=== PATIENT | male | born 1950 | race Native Hawaiian/Other Pacific Islander ===

== ENCOUNTER 2018-01-02 06:04 | Outpatient (CLI) | payer OTHER ==
[~2018-01-02 06:04] MED LIST: CLON0.5T36 PO; COZAAR100 MG PO; LEVEMIR SC; NOVOLOG SC
[2018-01-02 07:07] LABS: PLATELET COUNT 229 K/uL (142-355)
[2018-01-02 07:35] LABS: POTASSIUM 4.7 mmol/L (3.6-5.2)
== END 2018-01-02 21:31 | disposition home or self-care (01) ==
LOC: LABW 06:04
PROVIDERS: Internal Medicine
DX: Z00.00 Encounter for general adult medical examination without abnormal findings (principal); Z12.5 Encounter for screening for malignant neoplasm of prostate; R73.9 Hyperglycemia, unspecified; E78.00 Pure hypercholesterolemia, unspecified; R97.20 Elevated prostate specific antigen [PSA]
CPT/HCPCS: 36415; 80053; 80061; 81000; 82043; 82570; 83036; 84153; 84443; 85027

== ENCOUNTER 2018-01-27 08:56 | Outpatient (CLI) | payer OTHER | END 2018-01-27 19:24 | disposition home or self-care (01) | LOC: US 08:56 | DX: Z13.6 Encounter for screening for cardiovascular disorders (principal) ==

== ENCOUNTER 2018-11-08 13:55 | Emergency (ER) | payer OTHER ==
[~2018-11-08] VITALS: Ht 165.1 cm; Wt 127.0 kg
[2018-11-08 14:00] VITALS: TEMP 98
[2018-11-08 15:15] VITALS: BP 150/77
== END 2018-11-08 15:19 | disposition home or self-care (01) ==
LOC: ED 13:55
DX: S40.012A Contusion of left shoulder, initial encounter (principal); W01.0XXA Fall on same level from slipping, tripping and stumbling without subsequent striking against object, initial encounter; Y93.89 Activity, other specified; Y92.018 Other place in single-family (private) house as the place of occurrence of the external cause; S43.492A Other sprain of left shoulder joint, initial encounter
CPT/HCPCS: 99282

== ENCOUNTER 2019-03-12 04:49 | Outpatient (CLI) | payer OTHER ==
[2019-03-12 05:29] LABS: PLATELET COUNT 214 K/uL (142-355)
[2019-03-12 06:28] LABS: POTASSIUM 4.5 mmol/L (3.6-5.2)
== END 2019-03-12 20:10 | disposition home or self-care (01) ==
LOC: LABW 04:49
PROVIDERS: Internal Medicine
DX: N40.1 Benign prostatic hyperplasia with lower urinary tract symptoms (principal); E11.9 Type 2 diabetes mellitus without complications
CPT/HCPCS: 36415; 80053; 80061; 81000; 82043; 82570; 83036; 84153; 84439; 84443; 85027

== ENCOUNTER 2020-01-02 14:01 | Inpatient (IN) | payer OTHER ==
[~2020-01-02] VITALS: Ht 165.1 cm; Wt 103.9 kg
[~2020-01-02 14:01] MED LIST changes: +INSU300I SC; -LEVEMIR SC; -NOVOLOG SC; +NOVOLOG100 UNIT/M SC
[2020-01-02 14:07] VITALS: BP 129/67; TEMP 98.9
[2020-01-02 14:25] VITALS: BP 121/78
[2020-01-02 14:47] LABS: PLATELET COUNT 301 K/uL (142-355)
[2020-01-02 15:04] LABS: SODIUM 124 mmol/L (136-145)
[2020-01-02 15:30] VITALS: BP 110/68
[2020-01-02 16:40] VITALS: BP 116/69
[2020-01-02 17:40] VITALS: BP 132/61
[2020-01-02] MEDS ORDERED: NEURONTIN 100M100 MG PO (19:45)
[2020-01-02 19:46] VITALS: BP 161/77; TEMP 98.3; Ht 165.1 cm; Wt 103.9 kg
[2020-01-02] MEDS ORDERED: COZAAR100 MG PO ×2 (19:50→19:51)
[2020-01-02] MEDS ORDERED: TAMSULOSIN0.4 MG PO (19:51)
[2020-01-02] MEDS ORDERED: GABA100C2 PO (19:52)
[2020-01-03] VITALS: BP 133/80; TEMP 98.7
[2020-01-03 04:00] VITALS: BP 126/80; TEMP 97.8
[2020-01-03 04:58] LABS: PLATELET COUNT 246 K/uL (142-355)
[2020-01-03 05:29] LABS: POTASSIUM 3.6 mmol/L (3.6-5.2)
[2020-01-03 08:00] VITALS: BP 178/73; TEMP 97.9
[2020-01-03 12:00] VITALS: BP 133/68; TEMP 98.5
[2020-01-03 16:00] VITALS: BP 146/64; TEMP 98.6
[2020-01-03 20:00] VITALS: BP 117/78; TEMP 98.9
[2020-01-04] VITALS: BP 116/51; TEMP 98.9
[2020-01-04 04:00] VITALS: BP 123/65; TEMP 98.8
[2020-01-04 06:58] LABS: POTASSIUM 3.6 mmol/L (3.6-5.2)
[2020-01-04 07:02] LABS: PLATELET COUNT 250 K/uL (142-355)
[2020-01-04 08:00] VITALS: BP 110/49; TEMP 98.3
[2020-01-04] MEDS ORDERED: FINA5TAB2 PO (10:44)
[2020-01-04] MEDS ORDERED: CEFDINIR300 MG PO (10:52)
[2020-01-04 20:00] VITALS: BP 120/50; TEMP 98.3
[2020-01-05] VITALS (7 sets, daily range): BP systolic 104–168; BP diastolic 55–91; TEMP 98.1–98.9
[2020-01-05 05:42] LABS: PLATELET COUNT 152 K/uL (142-355)
[2020-01-05 06:12] LABS: POTASSIUM 3.7 mmol/L (3.6-5.2)
[2020-01-06 04:05] VITALS: BP 120/62; TEMP 97.5
[2020-01-06 05:16] LABS: POTASSIUM 3.5 mmol/L (3.6-5.2)
[2020-01-06 05:43] LABS: PLATELET COUNT 216 K/uL (142-355)
[2020-01-06 08:00] VITALS: BP 158/78; TEMP 97.3
[2020-01-06 12:00] VITALS: BP 166/88; TEMP 98.1
[2020-01-06 16:00] VITALS: BP 170/98; TEMP 98.3
[2020-01-06 20:00] VITALS: BP 88/52
[2020-01-06 20:14] VITALS: TEMP 98.1
[2020-01-07 00:10] VITALS: BP 138/83; TEMP 98.5
[2020-01-07 04:06] VITALS: BP 143/74; TEMP 98.6
[2020-01-07 05:27] LABS: PLATELET COUNT 200 K/uL (142-355)
[2020-01-07 05:31] LABS: POTASSIUM 3.7 mmol/L (3.6-5.2)
[2020-01-07 08:00] VITALS: BP 160/76; TEMP 98.4
[2020-01-07 12:00] VITALS: BP 145/76; TEMP 97.9
== END 2020-01-07 13:09 | disposition home or self-care (01) | DRG 637 ==
LOC: ED 14:01 → MED/SURG 15:55
PROVIDERS: Internal Medicine Endocrinology, Diabetes & Metabolism; ADMIT Emergency Medicine Emergency Medical Services
DX: E11.65 Type 2 diabetes mellitus with hyperglycemia (principal); G92 Toxic encephalopathy; N30.00 Acute cystitis without hematuria; N17.9 Acute kidney failure, unspecified; Z91.19 Patient's noncompliance with other medical treatment and regimen; N40.0 Benign prostatic hyperplasia without lower urinary tract symptoms; E11.40 Type 2 diabetes mellitus with diabetic neuropathy, unspecified; R62.7 Adult failure to thrive
CPT/HCPCS: 36415; 36416; 51702; 80048; 80053; 81000; 82947; 82962; 83036; 83605; 83880; 84484; 85027; 87077; 87086; 87088; 87635; 96361; 96365; 96375; 99284; J0696; J1644; J1650; J1815; J2405; U0003

== ENCOUNTER 2020-06-19 09:05 | Inpatient (IN) | payer OTHER ==
[~2020-06-19] VITALS: Ht 167.6 cm; Wt 109.5 kg
[2020-06-19] VITALS (14 sets, daily range): BP systolic 81–113; BP diastolic 33–60; TEMP 98–98.7; Ht 167.6 cm; Wt 109.5 kg
[~2020-06-19 09:05] MED LIST changes: +CEFDINIR300 MG PO; +FINA5TAB2 PO; +GABA100C2 PO; +NEURONTIN 100M100 MG PO; +TAMSULOSIN0.4 MG PO
[2020-06-19 09:35] LABS: PLATELET COUNT 223 K/uL (142-355)
[2020-06-19 09:54] LABS: SODIUM 134 mmol/L (136-145)
[2020-06-19] MEDS ORDERED: SIMV10TA PO (20:16)
[2020-06-19] MEDS ORDERED: FLUC150T PO (20:17)
[2020-06-20] VITALS (7 sets, daily range): BP systolic 92–142; BP diastolic 49–79; TEMP 98–98.7
[2020-06-20 05:10] LABS: PLATELET COUNT 215 K/uL (142-355)
[2020-06-20 05:17] LABS: POTASSIUM 4.6 mmol/L (3.6-5.2)
[2020-06-21 04:18] VITALS: BP 122/62; TEMP 98.4
[2020-06-21 05:38] LABS: PLATELET COUNT 183 K/uL (142-355)
[2020-06-21 05:56] LABS: POTASSIUM 4.5 mmol/L (3.6-5.2)
[2020-06-21 08:00] VITALS: BP 114/66; TEMP 98.3
[2020-06-21 12:00] VITALS: BP 149/65; TEMP 97.8
[2020-06-21 16:08] VITALS: BP 145/59; TEMP 98
[2020-06-21 20:00] VITALS: BP 160/58; TEMP 98.4
[2020-06-22 00:03] VITALS: BP 122/49; TEMP 99.1
[2020-06-22 03:59] VITALS: BP 132/69; TEMP 98.3
[2020-06-22 07:59] LABS: POTASSIUM 4.2 mmol/L (3.6-5.2)
[2020-06-22 08:00] VITALS: BP 139/76; TEMP 98
[2020-06-22 08:09] LABS: PLATELET COUNT 215 K/uL (142-355)
[2020-06-22 12:00] VITALS: BP 147/90; TEMP 98.9
[2020-06-22 16:00] VITALS: BP 150/64; TEMP 97.9
[2020-06-22 20:00] VITALS: BP 148/72; TEMP 99
[2020-06-23] VITALS: BP 131/68; TEMP 98
[2020-06-23 04:00] VITALS: BP 111/69; TEMP 98.7
[2020-06-23 05:45] LABS: PLATELET COUNT 184 K/uL (142-355)
[2020-06-23 05:58] LABS: POTASSIUM 4.3 mmol/L (3.6-5.2)
[2020-06-23 07:59] VITALS: BP 153/75; TEMP 98.5
[2020-06-23 12:00] VITALS: BP 162/78; TEMP 98
[2020-06-23 16:00] VITALS: BP 144/59; TEMP 98.6
[2020-06-23 19:58] VITALS: BP 140/63; TEMP 99.7
[2020-06-24] VITALS: BP 122/49; TEMP 99.7
[2020-06-24 03:57] VITALS: BP 124/47; TEMP 98.1
[2020-06-24 05:37] LABS: PLATELET COUNT 188 K/uL (142-355)
[2020-06-24 05:44] LABS: POTASSIUM 4.2 mmol/L (3.6-5.2)
[2020-06-24 08:00] VITALS: BP 116/52; TEMP 99.8
[2020-06-24 11:31] VITALS: BP 140/65; TEMP 98.7
[2020-06-24 16:00] VITALS: BP 145/76; TEMP 98.5
[2020-06-24 20:00] VITALS: BP 128/80; TEMP 98.9
[2020-06-25] VITALS: BP 115/44; TEMP 98.9
[2020-06-25 04:00] VITALS: BP 137/69; TEMP 98.7
[2020-06-25 05:34] LABS: PLATELET COUNT 187 K/uL (142-355)
[2020-06-25 08:00] VITALS: BP 122/59; TEMP 98.5
[2020-06-25 12:00] VITALS: BP 116/74; TEMP 97.9
== END 2020-06-25 16:20 | disposition home or self-care (01) | DRG 689 ==
LOC: ED 09:05 → MED/SURG 15:53
PROVIDERS: Family Medicine; ADMIT Internal Medicine Endocrinology, Diabetes & Metabolism; ATTEND Internal Medicine Endocrinology, Diabetes & Metabolism
DX: N30.00 Acute cystitis without hematuria (principal); J18.8 Other pneumonia, unspecified organism; N17.8 Other acute kidney failure; M62.82 Rhabdomyolysis; E11.9 Type 2 diabetes mellitus without complications; K21.9 Gastro-esophageal reflux disease without esophagitis; I95.89 Other hypotension; R09.02 Hypoxemia; I11.0 Hypertensive heart disease with heart failure; I50.9 Heart failure, unspecified; J20.9 Acute bronchitis, unspecified
CPT/HCPCS: 36415; 51702; 80048; 80053; 81000; 82150; 82550; 82553; 82948; 83605; 83690; 84484; 85027; 85379; 87040; 87088; 87635; 93005; 94760; 96360; 96361; 96365; 96366; 96367; 96372; 96375; 99284; J1956; J0696; J1650; J1815; J1940; J2405; J3490; U0003

== ENCOUNTER 2020-10-29 07:47 | Outpatient (CLI) | payer OTHER ==
[~2020-10-29 07:47] MED LIST changes: +FLUC150T PO; +SIMV10TA PO
== END 2020-10-29 21:44 | disposition home or self-care (01) ==
LOC: CT 07:47
PROVIDERS: ATTEND Internal Medicine
DX: H53.8 Other visual disturbances (principal)

== ENCOUNTER 2020-12-12 10:10 | Outpatient (CLI) | payer OTHER ==
[2020-12-12 10:42] LABS: POTASSIUM 4.7 mmol/L (3.6-5.2)
== END 2020-12-12 19:43 | disposition home or self-care (01) ==
LOC: LABW 10:10
PROVIDERS: ATTEND Internal Medicine Cardiovascular Disease
DX: R06.02 Shortness of breath (principal); Z79.899 Other long term (current) drug therapy
CPT/HCPCS: 36415; 80048; 83880

== ENCOUNTER 2020-12-21 12:53 | Outpatient (CLI) | payer OTHER | END 2020-12-21 22:38 | disposition home or self-care (01) | LOC: MRI 12:53 | PROVIDERS: ATTEND Internal Medicine | DX: G45.9 Transient cerebral ischemic attack, unspecified (principal) ==

== ENCOUNTER 2020-12-28 13:39 | Outpatient (CLI) | payer OTHER | END 2020-12-28 20:01 | disposition home or self-care (01) | LOC: MRI 13:39 | PROVIDERS: ATTEND Internal Medicine | DX: G45.9 Transient cerebral ischemic attack, unspecified (principal) ==

== ENCOUNTER 2021-01-11 08:45 | Outpatient (CLI) | payer OTHER | END 2021-01-11 19:04 | disposition home or self-care (01) | LOC: RESP 08:45 | PROVIDERS: ATTEND Internal Medicine Cardiovascular Disease | DX: I10 Essential (primary) hypertension (principal); R07.9 Chest pain, unspecified ==